=== PATIENT | female | born 1995 | race Caucasian/White ===

== ENCOUNTER 2017-12-17 11:00 | Emergency (ER) | payer MEDICAID ==
[~2017-12-17] VITALS: Ht 172.7 cm; Wt 137.3 kg
[2017-12-17 11:04] VITALS: BP 132/76
[2017-12-17] MEDS ORDERED: BACITRACIN ZINC OINT 500U/GM, 0.9 GM ONE (12:16)
== END 2017-12-17 12:22 | disposition home or self-care (01) ==
LOC: ED 12:17
DX: L02.411 Cutaneous abscess of right axilla (principal)
CPT/HCPCS: 10060; 99283

== ENCOUNTER 2018-01-24 18:08 | Emergency (ER) | payer MEDICAID ==
[~2018-01-24] VITALS: Ht 172.7 cm; Wt 137.4 kg
[2018-01-24 18:20] VITALS: BP 146/79
[2018-01-24 18:56] LABS: MICROSCOPIC NOT IND
[2018-01-24 18:56] LABS: BASOPHILS % (AUTO) 1 % (0-1); EOSINOPHILS # (AUTO) 0.29 x10^3/uL (0-0.4); EOSINOPHILS % (AUTO) 3 % (1-7); LYMPHOCYTES # (AUTO) 2.85 x10^3/uL (1-3.4); LYMPHOCYTES % (AUTO) 31 % (22-44); MD NO; MEAN CORPUSCULAR HEMOGLOBIN 30.7 pg (27.0-34.8); MEAN CORPUSCULAR HGB CONC 33.4 g/dL (32.4-35.8); MEAN CORPUSCULAR VOLUME 91.7 fL (80-100); MEAN PLATELET VOLUME 7.3 fL (7.4-10.4); MONOCYTES % (AUTO) 5 % (2-9); NEUTROPHILS # (AUTO) 5.45 x10^3/uL (1.8-6.8); NEUTROPHILS % (AUTO) 59 % (42-75); PLATELET COUNT 343 x10^3/uL (130-400); RED BLOOD COUNT 4.56 x10^6/uL (3.82-5.3)
[2018-01-24 19:01] LABS: CULTURE INDICATED? NO
[2018-01-24 19:08] LABS: ALANINE AMINOTRANSFERASE 63 U/L (12-78); ALBUMIN 3.6 g/dL (3.4-5.0); ANION GAP 8 mmol/L (5-15); CALCIUM 8.6 mg/dL (8.5-10.1); CHLORIDE 109 mmol/L (98-107); CREATININE 0.65 mg/dL (0.55-1.02)
[2018-01-24 19:25] LABS: ALKALINE PHOSPHATASE 69 U/L (45-117); BILIRUBIN,TOTAL 0.5 mg/dL (0.2-1.0); TOTAL PROTEIN 7.4 g/dL (6.4-8.2)
== END 2018-01-24 19:59 | disposition home or self-care (01) ==
LOC: ED 19:06
DX: O26.891 Other specified pregnancy related conditions, first trimester (principal); M54.5 Low back pain; Z3A.01 Less than 8 weeks gestation of pregnancy
CPT/HCPCS: 36415; 76801; 80053; 81003; 84702; 85025; 99285

== ENCOUNTER 2018-04-23 14:03 | Emergency (ER) | payer MEDICAID ==
[~2018-04-23] VITALS: Ht 172.7 cm; Wt 142.5 kg
[2018-04-23 14:20] VITALS: BP 143/79
[2018-04-23] MEDS ORDERED: ACETAMINOPHEN 500 MG TABLET PO ONE (15:30)
[2018-04-23] MEDS ORDERED: ACETAMINOPHEN 500 MG TABLET ONE (15:34)
== END 2018-04-23 15:46 | disposition home or self-care (01) ==
LOC: ED 15:45
DX: O26.892 Other specified pregnancy related conditions, second trimester (principal); K02.9 Dental caries, unspecified; K08.89 Other specified disorders of teeth and supporting structures; Z3A.18 18 weeks gestation of pregnancy
CPT/HCPCS: 99283

== ENCOUNTER → 2018-05-24 | Outpatient (CLI) | payer MEDICAID | END | disposition home or self-care (01) | LOC: CFH 15:59 | PROVIDERS: ATTEND Obstetrics & Gynecology | DX: O32.1XX0 Maternal care for breech presentation, not applicable or unspecified (principal); Z3A.22 22 weeks gestation of pregnancy | CPT/HCPCS: 76805 ==

== ENCOUNTER 2018-06-26 20:29 | Outpatient (CLI) | payer MEDICAID ==
[~2018-06-26] VITALS: Ht 172.7 cm; Wt 145.5 kg
== END 2018-06-26 21:15 | disposition home or self-care (01) ==
LOC: LDOP 20:29
PROVIDERS: ATTEND Obstetrics & Gynecology
DX: O36.8120 Decreased fetal movements, second trimester, not applicable or unspecified (principal); Z3A.27 27 weeks gestation of pregnancy
CPT/HCPCS: 59025; 99211; G0463

== ENCOUNTER 2018-09-16 16:20 | Inpatient (IN) | payer MEDICAID ==
[~2018-09-16] VITALS: Ht 172.7 cm; Wt 159.1 kg
[2018-09-16 17:33] VITALS: BP 140/71
[2018-09-16] MEDS ORDERED: LACTATED RINGERS 1,000 ML IV SCH (17:45)
[2018-09-16] MEDS ORDERED: PLEASE ENTER PATIENTS WEIGHT MC SCH (18:00)
[2018-09-16] MEDS ORDERED: SODIUM CITRATE/CITRIC ACID 15 ML UDC PO ONE (18:00)
[2018-09-16] MEDS ORDERED: METOCLOPRAMIDE 5 MG/ML, 2ML IV ONE (18:00)
[2018-09-16] MEDS ORDERED: LACTATED RINGERS 1,000 ML IVBOLUS ONE (18:00)
[2018-09-16 18:16] LABS: BASOPHILS # (AUTO) 0.03 x10^3/uL (0-0.1); BASOPHILS % (AUTO) 0 % (0-1); EOSINOPHILS # (AUTO) 0.05 x10^3/uL (0-0.4); EOSINOPHILS % (AUTO) 0 % (1-7); LYMPHOCYTES # (AUTO) 1.73 x10^3/uL (1-3.4); LYMPHOCYTES % (AUTO) 15 % (22-44); MD NO; MEAN CORPUSCULAR HEMOGLOBIN 31.4 pg (27.0-34.8); MEAN CORPUSCULAR HGB CONC 33.3 g/dL (32.4-35.8); MEAN CORPUSCULAR VOLUME 94.2 fL (80-100); MEAN PLATELET VOLUME 7.7 fL (7.4-10.4); MONOCYTES # (AUTO) 0.41 x10^3/uL (0.2-0.8); MONOCYTES % (AUTO) 4 % (2-9); NEUTROPHILS # (AUTO) 9.25 x10^3/uL (1.8-6.8); NEUTROPHILS % (AUTO) 81 % (42-75); PLATELET COUNT 289 x10^3/uL (130-400); RED BLOOD COUNT 4.18 x10^6/uL (3.82-5.3); RED CELL DISTRIBUTION WIDTH 13.9 % (9.6-15.2)
[2018-09-16] MEDS ORDERED: NEWBORN KIT ONE (18:36)
[2018-09-16] MEDS ORDERED: OXYTOCIN 30U/ 0.9% NaCL 500ML 500 ML ONE (18:53)
[2018-09-16] MEDS ORDERED: METOCLOPRAMIDE 5 MG/ML, 2ML ONE (18:53)
[2018-09-16] MEDS ORDERED: SODIUM CITRATE/CITRIC ACID 15 ML UDC ONE (18:53)
[2018-09-16] MEDS ORDERED: morphine SULFATE/PF 1 MG/ML, 10ML ONE (19:52)
[2018-09-16] MEDS ORDERED: ONDANSETRON 2MG/ML, 2ML ONE (19:54)
[2018-09-16] MEDS ORDERED: CEFAZOLIN 1,000 MG ONE (19:54)
[2018-09-16] MEDS ORDERED: WATER-INJECTION,STERILE 10 ML IV ONE (19:54)
[2018-09-16] MEDS ORDERED: OXYTOCIN 10 UNITS/ML, 1ML ONE (19:54)
[2018-09-16] MEDS ORDERED: DEXAMETHASONE 4 MG/ML, 1ML ONE (19:54)
[2018-09-16] MEDS ORDERED: PHENYLEPHRINE 10 MG/ML ONE (20:23)
[2018-09-16] MEDS ORDERED: SODIUM CHLORIDE 0.9% PF 10ML ONE (20:23)
[2018-09-16] MEDS ORDERED: EPHEDRINE 50 MG/ML, 1ML ONE (20:23)
[2018-09-16] MEDS: LACTATED RINGERS 1,000 ML IV SCH ×2 (21:24→21:44)
[2018-09-16] MEDS ORDERED: KETOROLAC 30 MG/1 ML ONE (21:25)
[2018-09-16] MEDS ORDERED: KETOROLAC 30 MG/1 ML IV PRN (21:30)
[2018-09-16] MEDS ORDERED: OXYcodone/APAP 5/325MG TABLET PO PRN (21:30)
[2018-09-16] MEDS ORDERED: METHYLERGONOVINE 0.2 MG/ML IM PRN (21:30)
[2018-09-16] MEDS ORDERED: morphine SULFATE 10 MG/ML, 1ML IM PRN (21:30)
[2018-09-16] MEDS ORDERED: SIMETHICONE 80 MG CHEW TAB PO PRN (21:30)
[2018-09-16] MEDS ORDERED: MISOPROSTOL 200 MCG TABLET PR PRN (21:30)
[2018-09-16] MEDS ORDERED: ONDANSETRON 2MG/ML, 2ML IV PRN (21:30)
[2018-09-16] MEDS ORDERED: MEASLES,MUMPS&RUBELLA VACC/PF 0.5 ML SQ-VACC PRN (21:30)
[2018-09-16] MEDS: KETOROLAC 30 MG/1 ML IV PRN (21:43)
[2018-09-16] MEDS: OXYTOCIN 30U/ 0.9% NaCL 500ML 500 ML IV SCH (21:43)
[2018-09-16 22:40] VITALS: BP 135/83
[2018-09-17 04:20] VITALS: BP 134/83
[2018-09-17] MEDS: KETOROLAC 30 MG/1 ML IV PRN ×3 (05:00→18:03)
[2018-09-17] MEDS: LACTATED RINGERS 1,000 ML IV SCH ×2 (05:24→06:43)
[2018-09-17 05:59] LABS: BASOPHILS # (AUTO) 0.02 x10^3/uL (0-0.1); BASOPHILS % (AUTO) 0 % (0-1); EOSINOPHILS % (AUTO) 0 % (1-7); LYMPHOCYTES % (AUTO) 10 % (22-44); MD NO; MEAN CORPUSCULAR HEMOGLOBIN 31.5 pg (27.0-34.8); MEAN CORPUSCULAR HGB CONC 33.3 g/dL (32.4-35.8); MEAN CORPUSCULAR VOLUME 94.6 fL (80-100); MEAN PLATELET VOLUME 7.6 fL (7.4-10.4); MONOCYTES # (AUTO) 0.43 x10^3/uL (0.2-0.8); MONOCYTES % (AUTO) 3 % (2-9); NEUTROPHILS # (AUTO) 12.81 x10^3/uL (1.8-6.8); NEUTROPHILS % (AUTO) 87 % (42-75); PLATELET COUNT 280 x10^3/uL (130-400); RED BLOOD COUNT 3.88 x10^6/uL (3.82-5.3)
[2018-09-17] MEDS: OXYTOCIN 30U/ 0.9% NaCL 500ML 500 ML IV SCH (07:24)
[2018-09-17 07:30] VITALS: BP 119/75
[2018-09-17 08:30] VITALS: BP 129/76
[2018-09-17] MEDS: DOCUSATE 100 MG CAPSULE PO PRN (08:46)
[2018-09-17] MEDS: PRENATAL VIT/IRON/FA 1 EACH TABLET PO SCH (08:46)
[2018-09-17 11:51] VITALS: BP 133/83
[2018-09-17 16:00] VITALS: BP 132/83
[2018-09-17 20:10] VITALS: BP 138/83
[2018-09-17] MEDS: OXYcodone/APAP 5/325MG TABLET PO PRN (22:37)
[2018-09-18] MEDS: IBUPROFEN 600 MG TABLET PO PRN ×3 (01:48→14:46)
[2018-09-18] MEDS: DOCUSATE 100 MG CAPSULE PO PRN ×2 (01:48→08:17)
[2018-09-18 07:56] VITALS: BP 142/86
[2018-09-18] MEDS: OXYcodone/APAP 5/325MG TABLET PO PRN ×2 (08:17→14:46)
[2018-09-18] MEDS: PRENATAL VIT/IRON/FA 1 EACH TABLET PO SCH (08:17)
[2018-09-18 20:00] VITALS: BP 160/81
[2018-09-19] MEDS: IBUPROFEN 600 MG TABLET PO PRN ×3 (02:11→15:56)
[2018-09-19] MEDS: OXYcodone/APAP 5/325MG TABLET PO PRN ×2 (09:17→15:56)
[2018-09-19] MEDS: PRENATAL VIT/IRON/FA 1 EACH TABLET PO SCH (09:17)
[2018-09-19] MEDS: DOCUSATE 100 MG CAPSULE PO PRN (09:17)
[2018-09-19] MEDS ORDERED: OXYC-302 PO (16:38)
[2018-09-19] MEDS ORDERED: IBUP-1222 PO (16:38)
== END 2018-09-19 17:20 | disposition home or self-care (01) | DRG 788 ==
LOC: LDIP 17:19 → 2NW 22:31
PROVIDERS: ADMIT Obstetrics & Gynecology; ATTEND Obstetrics & Gynecology
PROC: 10D00Z1 Extraction of Products of Conception, Low, Open Approach (ICD-10-PCS; principal; 2018-09-16)
DX: O99.214 Obesity complicating childbirth (principal); O34.211 Maternal care for low transverse scar from previous cesarean delivery; Z37.0 Single live birth; Z3A.39 39 weeks gestation of pregnancy; E66.01 Morbid (severe) obesity due to excess calories
CPT/HCPCS: 36415; 82803; 85025; 86850; 86900; G0378; J0690; J1100; J1885; J2274; J2405; J2370; J2590; J2765; J7120